=== PATIENT | male | born 1970 | race Caucasian/White ===

== ENCOUNTER 2020-12-20 | Outpatient (CLI) | payer MEDICARE | END 2020-12-20 18:50 | disposition short-term general hospital (02) | CPT/HCPCS: A0425; A0427 ==

== ENCOUNTER 2020-12-24 | Outpatient (CLI) | payer MEDICARE | END 2020-12-24 17:52 | disposition short-term general hospital (02) | DX: I21.4 Non-ST elevation (NSTEMI) myocardial infarction (principal) | CPT/HCPCS: A0425; A0428 ==

== ENCOUNTER 2020-12-24 | Outpatient (CLI) | payer MEDICARE | END 2020-12-24 13:25 | disposition critical access hospital (66) | CPT/HCPCS: A0425; A0427 ==

== ENCOUNTER 2020-12-24 14:07 | Emergency (ER) | payer MEDICARE ==
[2020-12-24] MEDS ORDERED: LORazepam 2 MG/ML VIAL IVP STA (14:36)
--- NOTE | 2020-12-24 14:36 | ED Physician Documentation ---
PD HPI CHEST PAIN - Stated complaint Stated Complaint: CP - Chief complaint Chief Complaint: Cardiac - History obtained from History obtained from: Patient - Additional information Additional information: 50-year-old gentleman was in the emergency department at [place] 4 days ago for methamphetamine overdose and hypertension. He was started on amlodipine and hydrochlorothiazide. This morning he feels anxious, feels like his heart is racing. There is some mild chest discomfort and uneasiness associated with it. He denies methamphetamine use since being hospitalized 3 days ago. Denies pedal edema or calf pain. Review of Systems Ten Systems: 10 systems reviewed and negative Constitutional: denies: Fever, Chills Nose: denies: Rhinorrhea / runny nose, Congestion Cardiac: denies: Pedal edema, Calf pain Respiratory: denies: Hemoptysis, Wheezing PD PAST MEDICAL HISTORY - Past Medical History Past Medical History: No Cardiovascular: Hypertension Respiratory: None Neuro: None Endocrine/Autoimmune: None GI: GERD, Other : None HEENT: None Psych: Depression, Anxiety Musculoskeletal: None Derm: None - Past Surgical History Past Surgical History: No - Present Medications Home Medications: Ambulatory Orders Medication Instructions Recorded Confirmed Hydrochlorothiazide 25 mg PO DAILY 12/24/20 12/24/20 amLODIPine [Norvasc] 5 mg PO DAILY 12/24/20 12/24/20 - Allergies Allergies/Adverse Reactions: Allergies Allergy/AdvReac Type Severity Reaction Status Date / Time No Known Drug Allergies Allergy Verified 12/24/20 14:14 - Social History Does the pt smoke?: No Smoking Status: Former smoker Does the pt drink ETOH?: Yes Does the pt have substance abuse?: Yes Substance Use and Type: Marijuana, Meth - Immunizations Immunizations are current?: Yes PD ED PE NORMAL - Vitals Vital signs reviewed: Yes (Mild tachycardia and hypertension) - General General: Alert and oriented X 3, No acute distress - HEENT HEENT: PERRL, EOMI - Neck Neck: Supple, no meningeal sign, No bony TTP - Cardiac Cardiac: RRR, No murmur - Respiratory Respiratory: No respiratory distress, Clear bilaterally - Abdomen Abdomen: Non tender - Back Back: No CVA TTP, No spinal TTP - Derm Derm: Normal color, Warm and dry - Extremities Extremities: No edema, No calf tenderness / cord - Neuro Neuro: Alert and oriented X 3, Normal speech Results - Vitals Vitals: Vital Signs - 24 hr 12/24/20 12/24/20 12/24/20 14:17 14:29 16:22 Temperature 37.3 C Heart Rate 113 H 108 H 84 Respiratory 18 12 14 Rate Blood Pressure 176/131 H 178/121 H 156/122 H O2 Saturation 96 96 94 Oxygen O2 Source Room air - EKG (time done) 1412 Rate: Rate (enter#) (116) Rhythm: Sinus tachycardia [place]: Normal Intervals: Normal MT QRS: Normal Ischemia: Normal ST segments - Labs Labs: Laboratory Tests 12/24/20 12/24/20 12/24/20 14:36 14:36 14:36 WBC 6.6 RBC 4.91 Hgb 14.6 Hct 41.7 L MCV 84.9 MCH 29.7 MCHC 35.0 RDW 12.7 Plt Count 245 MPV 8.8 Neut # (Auto) 4.9 Lymph # (Auto) 1.1 L Ransom # (Auto) 0.6 Eos # (Auto) 0.1 Baso # (Auto) 0.0 Absolute Nucleated RBC 0.00 Nucleated RBC % 0.0 D-Dimer Sodium 136 Potassium 3.4 L Chloride 97 L Carbon Dioxide 25 Anion Gap 14.0 H BUN 12 Creatinine 0.9 Estimated GFR (MDRD) 89 Glucose 117 H Calcium 9.0 Total Bilirubin 0.9 AST 170 H ALT 97 H Alkaline Phosphatase 71 Troponin I High Sens 86.5 H* Total Protein 7.5 Albumin 4.3 Globulin 3.2 Albumin/Globulin Ratio 1.3 Lipase 23 Urine Color Urine Clarity Urine pH Ur Specific Mamou Urine Protein Urine Glucose (UA) Urine Ketones Urine Occult Blood Urine Nitrite Urine Bilirubin Urine Urobilinogen Ur Leukocyte Esterase Ur Microscopic Review Urine Culture Comments Nasal Adenovirus (PCR) Nasal B. parapertussis DNA (PCR) Nasal Coronavir 229E PCR Nasal Coronavir HKU1 PCR Nasal Coronavir NL63 PCR Nasal Coronavir OC43 PCR Nasal Enterovir/Rhinovir PCR Nasal Influenza B PCR Nasal Influenza A PCR Nasal Parainfluen 1 PCR Nasal Parainfluen 2 PCR Nasal Parainfluen 3 PCR Nasal Parainfluen 4 PCR Nasal RSV (PCR) Nasal B.pertussis DNA PCR Nasal C.pneumoniae (PCR) Monster Human Metapneumo PCR Nasal M.pneumoniae (PCR) Nasal SARS-CoV-2 (PCR) Urine Opiates Screen Ur Oxycodone Screen Urine Methadone Screen Ur Propoxyphene Screen Ur Barbiturates Screen Ur Tricyclics Screen Ur Phencyclidine Scrn Ur Amphetamine Screen U Methamphetamines Scrn U Benzodiazepines Scrn Urine Cocaine Screen U Cannabinoids Screen 12/24/20 12/24/20 12/24/20 14:36 15:30 15:30 WBC RBC Hgb Hct MCV MCH MCHC RDW Plt Count MPV Neut # (Auto) Lymph # (Auto) Ransom # (Auto) Eos # (Auto) Baso # (Auto) Absolute Nucleated RBC Nucleated RBC % D-Dimer 359.7 H Sodium Potassium Chloride Carbon Dioxide Anion Gap BUN Creatinine Estimated GFR (MDRD) Glucose Calcium Total Bilirubin AST ALT Alkaline Phosphatase Troponin I High Sens Total Protein Albumin Globulin Albumin/Globulin Ratio Lipase Urine Color YELLOW Urine Clarity CLEAR Urine pH 6.0 Ur Specific Mamou 1.010 Urine Protein NEGATIVE Urine Glucose (UA) NEGATIVE Urine Ketones TRACE Urine Occult Blood NEGATIVE Urine Nitrite NEGATIVE Urine Bilirubin NEGATIVE Urine Urobilinogen 0.2 (NORMAL) Ur Leukocyte Esterase NEGATIVE Ur Microscopic Review NOT INDICATED Urine Culture Comments NOT INDICATED Nasal Adenovirus (PCR) NOT DETECTED Nasal B. parapertussis DNA (PCR) NOT DETECTED Nasal Coronavir 229E PCR NOT DETECTED Nasal Coronavir HKU1 PCR NOT DETECTED Nasal Coronavir NL63 PCR NOT DETECTED Nasal Coronavir OC43 PCR NOT DETECTED Nasal Enterovir/Rhinovir PCR NOT DETECTED Nasal Influenza B PCR NOT DETECTED Nasal Influenza A PCR NOT DETECTED Nasal Parainfluen 1 PCR NOT DETECTED Nasal Parainfluen 2 PCR NOT DETECTED Nasal Parainfluen 3 PCR NOT DETECTED Nasal Parainfluen 4 PCR NOT DETECTED Nasal RSV (PCR) NOT DETECTED Nasal B.pertussis DNA PCR NOT DETECTED Nasal C.pneumoniae (PCR) NOT DETECTED Monster Human Metapneumo PCR NOT DETECTED Nasal M.pneumoniae (PCR) NOT DETECTED Nasal SARS-CoV-2 (PCR) NOT DETECTED Urine Opiates Screen NEGATIVE Ur Oxycodone Screen NEGATIVE Urine Methadone Screen NEGATIVE Ur Propoxyphene Screen NEGATIVE Ur Barbiturates Screen NEGATIVE Ur Tricyclics Screen NEGATIVE Ur Phencyclidine Scrn NEGATIVE Ur Amphetamine Screen POSITIVE H U Methamphetamines Scrn POSITIVE H U Benzodiazepines Scrn POSITIVE H Urine Cocaine Screen NEGATIVE U Cannabinoids Screen POSITIVE H - Rads (name of study) CTA Chest Radiology: EMP read contemporaneously (no PE< noted gallstones) PD MEDICAL DECISION MAKING - ED course ED course: 50-year-old gentleman had been using methamphetamines a few days ago and was seen in [place]. Now today he has vague chest discomfort and sinus tachycardia. EKG is nonischemic but troponin is positive. D-dimer also positive but a CT done without evidence of PE. He was administered oral metoprolol, Nitropaste, Ativan and Lovenox here. He had gotten full dose aspirin on the way here from EMS. Given the elevated troponin and potential for non-STEMI he was accepted to [facility] by Dr. Sarah St at 4:40 PM and cobras were completed. Departure - Departure Disposition: 02 Transfer Acute Care Hosp Clinical Impression: Myocardial infarction Qualifiers: Myocardial infarction type: non-ST elevation myocardial infarction Qualified Code(s): I21.4 - Non-ST elevation (NSTEMI) myocardial infarction Condition: Serious
[2020-12-24 14:49] LABS: BASOPHILS % (AUTO) 0.3 %; EOSINOPHILS # (AUTO) 0.1 10^3/uL (0.0-0.7); EOSINOPHILS % (AUTO) 0.8 %; HCT - HEMATOCRIT 41.7 % (42.0-52.0); HGB - HEMOGLOBIN 14.6 g/dL (14.0-18.0); LYMPHOCYTES # (AUTO) 1.1 10^3/uL (1.5-3.5); LYMPHOCYTES % (AUTO) 16.7 %; MEAN CORPUSCULAR HEMOGLOBIN 29.7 pg (27.0-31.0); MEAN CORPUSCULAR VOLUME 84.9 fL (80.0-94.0); MEAN PLATELET VOLUME 8.8 fL (7.4-11.4); MONOCYTES # (AUTO) 0.6 10^3/uL (0.0-1.0); MONOCYTES % (AUTO) 8.4 %; NEUTROPHILS # (AUTO) 4.9 10^3/uL (1.5-6.6); NEUTROPHILS % (AUTO) 73.3 %; PLT - PLATELET COUNT 245 10^3/uL (130-450); RED BLOOD COUNT 4.91 10^6/uL (4.70-6.10); RED CELL DISTRIBUTION WIDTH 12.7 % (12.0-15.0); WHITE BLOOD COUNT 6.6 x10^3/uL (4.8-10.8)
--- OUTSIDE RECORDS SUMMARY | 2020-12-24 14:54 | EXTERNAL MEDICAL SUMMARY RPT | Continuity of Care Document ---
:1970 Demographics Phone Unavailable Preferred Language Unknown Marital Status Unknown [employer] Affiliation Unknown Race Unknown Ethnic Group Unknown Author Organization [place] Address [address] [place] [address] Phone Problems date description facility [id number] Tachycardia [facility] [id number] Other stimulant abuse, uncomplicated [facility] [id number] Hypertensive emergency [facility] [id number] Fever, unspecified [facility] [id number] Altered mental status, unspecified [facility] [id number] Altered Mental Status [facility] [id number] Acute kidney failure, unspecified [facility] [id number] Acidosis [facility]
[2020-12-24 14:59] LABS: ALBUMIN 4.3 g/dL (3.2-5.5); ALBUMIN/GLOBULIN RATIO 1.3 (1.0-2.2); BILIRUBIN,TOTAL 0.9 mg/dL (0.2-1.0); CREATININE 0.9 mg/dL (0.6-1.2); POTASSIUM 3.4 mmol/L (3.5-5.0); TOTAL PROTEIN 7.5 g/dL (6.7-8.2)
[2020-12-24] MEDS ORDERED: NITROGLYCERIN 2% PASTE TOP STA (15:15)
[2020-12-24] MEDS ORDERED: ENOXAPARIN 80 MG/0.8 ML SYRINGE SUBQ STA ×2 (15:15→16:31)
[2020-12-24] MEDS ORDERED: ASPIRIN 325 MG TABLET PO STA (15:15)
[2020-12-24] MEDS ORDERED: METOPROLOL TARTRATE 50 MG TABLET PO STA (15:16)
[2020-12-24] MEDS ORDERED: IOVERSOL 320 100 ML VIAL IVP ONE ×2 (15:34→16:12)
[2020-12-24 16:23] VITALS: BP 156/122
[2020-12-24 16:27] LABS: B. PARAPERTUSSIS- RESP PCR PAN NOT DETECTED; B. PERTUSSIS- RESP PCR PANEL NOT DETECTED; C. PNEUMONIAE- RESP PCR PANEL NOT DETECTED; CORONAVIRUS 229E-RESP PCR NOT DETECTED; CORONAVIRUS HKU1-RESP PCR NOT DETECTED; CORONAVIRUS NL63-RESP PCR NOT DETECTED; CORONAVIRUS OC43-RESP PCR NOT DETECTED; HUMAN METAPNEUMOVIRUS NOT DETECTED; INFLUENZA A- RESP PCR PANEL NOT DETECTED; INFLUENZA B - RESP PCR PANEL NOT DETECTED; M. PNEUMONIAE- RESP PCR PANEL NOT DETECTED; PARAINFLUENZA VIRUS 1 NOT DETECTED; PARAINFLUENZA VIRUS 2 NOT DETECTED; PARAINFLUENZA VIRUS 3 NOT DETECTED; PARAINFLUENZA VIRUS 4 NOT DETECTED; RHINOVIRUS/ENTEROVIRUS NOT DETECTED; RSV- RESP PCR PANEL NOT DETECTED; SARS-CoV-2 -RESP PCR PANEL NOT DETECTED
[2020-12-24 16:30] LABS: MUDS CUTOFF CONCENTRATIONS CUTOFF CONC BELOW:
[2020-12-24 16:33] LABS: BILIRUBIN,URINE NEGATIVE (NEGATIVE); GLUCOSE, URINE (UA) NEGATIVE (NEGATIVE); KETONES,URINE (UA) TRACE mg/dL (NEGATIVE); LEUKOCYTE ESTERASE, URINE NEGATIVE (NEGATIVE); NITRITE,URINE NEGATIVE (NEGATIVE); OCCULT BLOOD,URINE NEGATIVE (NEGATIVE); PROTEIN,URINE NEGATIVE (NEGATIVE); UROBILINOGEN,URINE 0.2 (NORMAL) E.U./dL (NORMAL)
[2020-12-24 16:35] LABS: CLARITY,URINE CLEAR (CLEAR)
[2020-12-24 16:45] LABS: COCAINE SCREEN URINE NEGATIVE (NEGATIVE); THC CANNABINOID SCREEN, URINE POSITIVE (NEGATIVE)
[2020-12-24 16:46] LABS: AMPHETAMINE SCREEN,URINE POSITIVE (NEGATIVE); BARBITURATE SCREEN,UR NEGATIVE (NEGATIVE); BENZODIAZEPINES SCREEN, URINE POSITIVE (NEGATIVE); METHADONE SCREEN, URINE NEGATIVE (NEGATIVE); METHAMPHETAMINES SCREEN, URINE POSITIVE (NEGATIVE); OPIATE SCREEN, URINE NEGATIVE (NEGATIVE); OXYCODONE SCREEN, URINE NEGATIVE (NEGATIVE); PROPOXYPHENE SCREEN, URINE NEGATIVE (NEGATIVE); TRICYCLIC ANTIDEPRESSANT,URINE NEGATIVE (NEGATIVE)
--- NOTE | 2020-12-24 16:52 | CT Report ---
PROCEDURE: ANGIO CHEST W/WO INDICATIONS: pe protocol high dimer, cp CONTRAST: IV CONTRAST: Optiray 320 ml: 80 PO CONTRAST: *NO PO CONTRAST TECHNIQUE: After the administration of intravenous contrast, 2 mm thick sections acquired from the pulmonary api alyssa to the posterior costophrenic angles. 3-dimensional maximum intensity projection (MIP) coronal a nd sagittal reformats were then acquired through the thorax. For radiation dose reduction, the follow ing was used: automated exposure control, adjustment of mA and/or kV according to patient size. COMPARISON: Correlation is made with the accompanying chest x-ray, 12/24/2020. Correlation is made wi th the prior abdomen and pelvis CT, 10/15/2015. FINDINGS: Image quality: Excellent. Pulmonary arteries: Pulmonary arteries are normal in size, and demonstrate no intraluminal filling d efects to suggest central pulmonary embolism. Lungs and pleura: Mild interstitial prominence is seen. No pleural effusions or pneumothorax. Centra l and peripheral airways are patent. Mediastinum: Heart size is normal, without pericardial effusion. No mediastinal or hilar adenopathy . Thoracic aorta is normal in caliber and enhancement. Esophagus is normal in caliber, without hiat al hernia. Bones and chest wall: No suspicious bony lesions. Ribs and thoracic spine appear intact throughout. Mild degenerative changes are seen. No axillary or supraclavicular adenopathy. The thyroid is candelario l in size and there are no incidental findings. Abdomen: Layering gallstones are seen. The visualized portions of the upper abdominal structures are otherwise within normal limits. IMPRESSION: Negative for pulmonary motion. Gallstones are incidentally noted. Reviewed by: Tristian Traylor MD on 12/24/2020 3:51 PM AKDT Approved by: Tristian Traylor MD on 12/24/2020 3:51 PM AKDT Station ID: [id number]
--- NOTE | 2020-12-24 20:46 | XRAY Report ---
PROCEDURE: Chest 1 View X-Ray INDICATIONS: Chest Pain TECHNIQUE: One view of the chest was acquired. COMPARISON: None. FINDINGS: Surgical changes and devices: None. Lungs and pleura: No pleural effusions or pneumothorax. Diffuse ground glass opacity of the bilatera l mid and lower lung zones. No focal consolidation. Mediastinum: Mediastinal contours appear normal. Heart size is normal. Bones and chest wall: No suspicious bony lesions. Overlying soft tissues appear unremarkable. IMPRESSION: Diffuse groundglass opacities of the bilateral mid and lower lung zones without focal consolidation. Findings may represent hypoventilatory changes/atelectasis. Infectious/inflammatory process not exclu ded if clinically appropriate. Reviewed by: Ld Maciel MD on 12/24/2020 8:44 PM PDT Approved by: Ld Maciel MD on 12/24/2020 8:44 PM PDT Station ID: [id number]
== END 2020-12-24 17:50 | disposition short-term general hospital (02) ==
LOC: EDUNIT# → ED 14:07
DX: I21.4 Non-ST elevation (NSTEMI) myocardial infarction (principal); Z87.891 Personal history of nicotine dependence; Z20.822 Contact with and (suspected) exposure to COVID-19
CPT/HCPCS: 36415; 71045; 71275; 80053; 80306; 81003; 83690; 84484; 85025; 85379; 87631; 93005; 96372; 96374; 99285; A9270; J1650; J2060; Q9967; 0202U; 81001; 87086

== ENCOUNTER 2022-12-17 18:48 | Emergency (ER) | payer MEDICAID, MEDICARE, OTHER ==
[2022-12-17] MEDS ORDERED: DOXYCYCLINE 100 MG TABLET PO STA (22:26)
[2022-12-17 22:41] VITALS: BP 159/103
--- NOTE | 2022-12-19 19:21 | ED Physician Documentation ---
PD HPI SKIN - Stated complaint Stated Complaint: SPIDER BITE - Chief complaint Chief Complaint: Wound - History obtained from History obtained from: Patient - Additional information Additional information: HPI from patient. Patient c/o 2 days of gradual onset, steadily progressive (in pain and area in volved) left buttock abscess. Denies h/o similar symptom(s). Denies trauma, denies fever. He says he was able to express some pus from the lesion earlier today. Pain is worse with palpation, sitting in positions that put pressure on the area (such as sitting upright in a chair) Review of Systems Constitutional: denies: Fever Skin: reports: Lesions PD PAST MEDICAL HISTORY - Past Medical History Cardiovascular: Hypertension Respiratory: None Neuro: None Endocrine/Autoimmune: None GI: GERD, Other : None HEENT: None Psych: Depression, Anxiety Musculoskeletal: None Derm: None - Past Surgical History Past Surgical History: No - Present Medications Home Medications: Ambulatory Orders Medication Instructions Recorded Confirmed Doxycycline [Vibramycin] 100 mg PO BID #13 tablet 12/17/22 - Allergies Allergies/Adverse Reactions: Allergies Allergy/AdvReac Type Severity Reaction Status Date / Time No Known Drug Allergies Allergy Verified 12/17/22 19:22 - Social History Does the pt smoke?: No Smoking Status: Former smoker Does the pt drink ETOH?: Yes Does the pt have substance abuse?: Yes - Immunizations Immunizations are current?: Yes PD ED PE NORMAL - Vitals Vital signs reviewed: Yes - General General: Alert and oriented X 3, No acute distress, Well developed/nourished PD ED PE EXPANDED - Back Back visual: 1 - abscess (flat erythema extends to 2-3cm diameter but palpable firm margins c/w abscess are approximately 1 cm diameter with central sinus tract draining pus; minimal fluctuance), swelling, tenderness Results - Vitals Vitals: Oxygen O2 Source Room air PD Medical Decision Making - ED course ED course: left buttock abscess that started draining pus earlier this evening. On exam, there is more flat cellulitis than formed abscess; the abscess is small (by palpable margins, no more than 1 cm diameter) and with minimal fluctuance. Further opening of the abscess (ie I+D) is not indicated at this time, as the size of the lesion and that it is already draining make it likely that the addition of appropriate antibiotic coverage will result in resolution of the lesion. Given doxycycline with rx for same. Return precautions discussed. Departure - Departure Disposition: 01 Home, Self Care Clinical Impression: Cutaneous abscess Qualifiers: Site of cutaneous abscess: buttock Qualified Code(s): L02.31 - Cutaneous abscess of buttock Condition: Good Instructions: ED Staph Infec Abx Tx Only Prescriptions: Doxycycline [Vibramycin] 100 mg PO BID #13 tablet Comments: The lesion on your left buttock is an abscess. This is caused by a bacterial infection, and most frequent bleed it is not due to a specific incident such as a cut or a bite. The abscess is already draining (pus discharge), and thus does not need to be opened further at this time. You are given the first dose of an antibiotic (doxycycline) in the emergency department and a prescription has been electronically submitted to the [facility] in [place] for a 1 week course of this same antibiotic. Discharge Date/Time: 12/17/22 22:41
== END 2022-12-17 22:41 | disposition home or self-care (01) ==
LOC: ED 18:48
DX: L02.31 Cutaneous abscess of buttock (principal); I10 Essential (primary) hypertension
CPT/HCPCS: 99282; 99283; A9270

== ENCOUNTER 2023-11-08 17:48 | Outpatient (CLI) | payer MEDICAID | END 2023-11-08 23:59 | disposition short-term general hospital (02) | LOC: EMS 17:48 | DX: R42 Dizziness and giddiness (principal); R29.810 Facial weakness; H53.2 Diplopia; R51.9 Headache, unspecified; K08.89 Other specified disorders of teeth and supporting structures | CPT/HCPCS: A0425; A0429; A0999 ==